=== PATIENT | male | born 1990 | race Caucasian/White ===

== ENCOUNTER 2024-07-18 13:45 | Outpatient (RCR) | payer OTHER, SELFPAY ==
--- NOTE | 2024-05-20 15:44 | PT.OIE ---
Current Diagnoses Pain in unspecified knee (05/20/24) Dorsalgia, unspecified (05/20/24) Weakness (05/20/24) Visit Care Team Role Provider Type Lou Prajapati DO Attending Provider Non-Staff Family Provider Primary Care Provider Referring Provider Specialty: Medical Address: [address] [place] [address], [phone] Fax: Email: Physical Therapy Initial Evaluation PT-OP-A Visit Information Start: 05/20/24 08:10 Freq: Status: Active Protocol: Document 05/20/24 08:13 SAK (Rec: 05/20/24 09:02 SAK [id number]) Out-Patient Physical Therapy Visit Information Visit Information Visit Type Initial Evaluation Visit Start Time 08:15 Visit Stop Time 09:01 Visit Number 1 Evaluation Information Evaluation Date 05/20/24 PT-OP-B Current Condition Start: 05/20/24 08:10 Freq: Status: Active Protocol: Document 05/20/24 08:13 SAK (Rec: 05/20/24 09:02 SAK [id number]) Current Condition History of Current Condition Onset Date 2 years Current Complaints bilateral LBP right greater than left, right knee pain History of Current Condition 2 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 Knee pain/ stiffness started about the same time especially after physical activity. Running less now due to that pain/ stiffness but definitely feels it more after running. Wakes up stiff in low back. Less lifting at work but has 25 lb 1 1/2 year old who likes to be carried a lot. No numbness or tingling, no drop foot. For exrcise does rowing, weight lifting, pickle ball, tennisl. No popping, clicking, or giving way of knee. Uses foam roller, does thread the needle stretch. Does some leg stretching of legs as well. Had PT in [place] previously and found dry needling helpful about 1 year ago. Prior Treatments and Tests no recent x-ray or MRI. Treatment Goals Patient/Caregiver Goals decrease pain and patric able to resume usual activities. Prior Functional Status Baseline Function- ADL's Independent Baseline Function- Mobility Independent Baseline Function- Gait no limitations Baseline Function- Recreation/Hobbies running without difficulty Current Functional Impairments (Reported) Functional Limitations- ADL's some pain and stiffness Functional Limitations- Mobility/Gait inc pain and stiffness Functional Limitations- Work/School some inc pain and stiffness, current plane better ergonomics Functional Limitations- Recreation/ inc pain and stiffness Hobbies PT-OP-C Subjective Start: 05/20/24 08:10 Freq: Status: Active Protocol: Document 05/20/24 08:13 SAK (Rec: 05/20/24 15:32 [facility] [id number]) OP-PT Pain Assessment Pain Behaviors Pain Behaviors Facial Grimacing,Wincing PT-OP-G Mobility & Gait Start: 05/20/24 08:10 Freq: Status: Active Protocol: Document 05/20/24 08:13 SAK (Rec: 05/20/24 15:32 [facility] [id number]) OP Gait Assessment Gait Gait Assistance Required: Independent Assistive Devices Assistive Device None Comments Gait Comments increased evrsion right foot, lateral patellar tilt PT-OP-H Neuro Start: 05/20/24 08:10 Freq: Status: Active Protocol: Document 05/20/24 08:13 SAK (Rec: 05/20/24 15:32 [facility] [id number]) Sensation Evaluation Gross Sensation Gross Sensation WNL PT-OP-J Posture/Palpation/Skin Start: 05/20/24 08:10 Freq: Status: Active Protocol: Document 05/20/24 08:13 SAK (Rec: 05/20/24 09:02 [facility] [id number]) Posture Evaluation Position Sitting Head/C-Spine Posture Forward Head T-Spine Posture Increased Kyphosis L-Spine Posture Shifted Right Shoulder Posture (L) Forward,(R) Forward Hip Posture (L) Abducted,(R) Abducted Patellar Posture (R) Laterally Tilted Standing Head/C-Spine Posture Forward Head T-Spine Posture Increased Kyphosis L-Spine Posture Flattened Arm Posture (L) Internally Rotated,(R) Internally Rotated Foot Arch (R) Low Arch Palpation Assessment Location lumbar spine Palpation Findings Soft Tissue Tightness Palpation Details right greater than left PT-OP-K Range of Motion Start: 05/20/24 08:10 Freq: Status: Active Protocol: Document 05/20/24 08:13 SAK (Rec: 05/20/24 09:02 [facility] [id number]) Lumbar Spine Range of Motion Lumbar Spine Active Testing Position Standing Flexion 70 Extension 20 Rotation Left 40 Rotation Right 40 Lateral Flexion Left 45 Lateral Flexion Right 45 ROM Limitations Soft Tissue Tightness Comments end range tightness Hip Goniometric Range of Motion Hip maribel Comments WFL exept right PSLR 80, left 65 Hip ROM Limitations Hip ROM Limitations Soft Tissue Tightness Knee Goniometric Range of Motion Knee maribel Knee ROM WFL Yes Ankle and Foot Goniometric Range of Motion Ankle and Foot maribel Ankle/Foot ROM WFL Yes PT-OP-L Special Tests Start: 05/20/24 08:10 Freq: Status: Active Protocol: Document 05/20/24 08:13 [facility] (Rec: 05/20/24 15:32 [facility] [id number]) Special Tests Lumbar Spine Special Tests Prone Knee Flexion Test Results - Slump Test Results - Prone Press Up Test Results - Knee Special Tests Varus- 0 Degrees Test Results - Valgus- 0 Degrees Test Results - Posterior Draw Test Results - Patellar Grind Test Test Results - Anterior Draw Test Results - Alexandro's Test Test Results - PT-OP-M Strength Start: 05/20/24 08:10 Freq: Status: Active Protocol: Document 05/20/24 08:13 [facility] (Rec: 05/20/24 15:32 [facility] [id number]) Trunk Strength Trunk Manual Muscle Testing Flexion 4 Good Extension 4 Good Hip Strength Hip Manual Muscle Testing maribel Flexion (L2) 4 Good Extension (S1) 4 Good Knee Strength Knee Manual Muscle Testing maribel Flexion (S2) 5 Normal Extension (L3) 5 Normal Ankle/Foot Strength Ankle and Foot Manual Muscle Testing Right Dorsiflexion (L4) 4+ Good+ Plantarflexion (S1) 4 Good Left Dorsiflexion (L4) 5 Normal Plantarflexion (S1) 5 Normal PT-OP-Q Treatments Start: 05/20/24 08:10 Freq: Status: Active Protocol: Document 05/20/24 08:13 [facility] (Rec: 05/20/24 15:32 [facility] [id number]) Self-Care/Home Management Treatment Education Patient Education Home Exercise Program,Posture Other Education issued written HEP PT-OP-T Assessment and Plan Start: 05/20/24 08:10 Freq: Status: Active Protocol: Document 05/20/24 08:13 [facility] (Rec: 05/20/24 15:32 [facility] [id number]) Physical Therapy Assessment Rehab Potential Rehabilitation Potential Good Evaluation Complexity Number of Personal Factors/Comorbidities 1-2 Number of Body Systems Impaired 3 Clinical Presentation at Evaluation Evolving Impairments Impairments Activity Tolerance,Pain,ROM, Strength Goals Four Impairment impairments in ROM and strength Short Term Goal (STG) Patient to be instrsucted in individualized progressive HEP for purposes of strengthening LE's and core, and improving flexibility STG Duration 06/20/24 Longterm Goal (LTG) Patient to be independent and compliant with HEP and demonstrate ROM WNL and strength 5/5 with good core stabilization with usual activities LTG Duration 07/20/24 Three Impairment altered patellar mechanics Court Commissioner Goal (LTG) Normalize patellar mechanics in open and closed chains for improved right knee function LTG Duration 07/20/24 Two Impairment right knee and low back pain and stiffness with lifting and running Short Term Goal (STG) Patient will report at least a 50% reduction in pain and stiffness with lifting and running STG Duration 06/20/24 [address] Commissioner Goal (LTG) Patient will report at least a 75% reduction in pain and stiffness with lifting and running including the ability to lift his toddler and go for runs without pain LTG Duration 07/20/24 One Impairment pain as high as 4/10 low back and right knee Court Commissioner Goal (LTG) Decrease pain by at least 75% with all usual activities. Assessment Summary Assessment Patient presents to PT with 2 year history of function- limiting LBP right greater than left and right knee pain . Gradual onset for both with no known injury. No neurological symptoms, no clicking or giving way of knee . 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 At this time he has strength and ROM impairments as well as excess lateral tilt and glide of right patella. Decreased hamstring length left vs right , decreased core stabilization , increased pronation right foot vs left, and increased eversion of of his right foot vs left in standing and with gait. He also has a postural tendency to lean to his right in sittingFeel he would benefit from PT to help improve his strength, flexibility, mechanics, and knee function to allow him to return to prior level of function. He appears highly motivated. POC was discussed and he was in agreement. Physical Therapy Plan Frequency and Duration Frequency of Treatment 2x/Week Duration of treatment (weeks) 8 Plan of Care Start Date 05/20/24 Plan of Care End Date 07/20/24 Therapeutic Interventions Therapeutic Interventions Home Exercise Program,Manual Therapy,Neuromuscular Re- education,Patient/Caregiver Education,Self-Care/Home Management,Soft Tissue Mobilization,Taping, Therapeutic Activities, Therapeutic Exercises Modalities Cold Pack/Ice Massage,Electric Stimulation,Hot Packs, Infrared Therapy,Traction- Mechanical,Ultrasound Next Visit Focus/Plan Next Note Type Treatment Note Next Visit Plan REview HEP, progress as tolerated for core strengthening and stabilization, flexibility, LE strengthening, trial KT tape to right knee. Check SLS and Ronni test.
--- NOTE | 2024-05-23 16:07 | PT.OTN ---
Current Diagnoses Pain in unspecified knee (05/23/24) Dorsalgia, unspecified (05/23/24) Weakness (05/23/24) Physical Therapy Treatment Note PT-OP-A Visit Information Start: 05/20/24 08:10 Freq: Status: Active Protocol: Document 05/23/24 15:50 SAK (Rec: 05/23/24 16:07 SAK [id number]) Out-Patient Physical Therapy Visit Information Visit Information Visit Type Treatment Note Visit Start Time 11:15 Visit Stop Time 12:02 Visit Number 2 Evaluation Information Evaluation Date 05/20/24 PT-OP-B Current Condition Start: 05/20/24 08:10 Freq: Status: Active Protocol: Document 05/23/24 15:50 SAK (Rec: 05/23/24 16:07 [facility] [id number]) Current Condition History of Current Condition Onset Date 2 years Current Complaints bilateral LBP right greater than left, right knee pain History of Current Condition 2 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 Knee pain/ stiffness started about the same time especially after physical activity. Running less now due to that pain/ stiffness but definitely feels it more after running. Wakes up stiff in low back. Less lifting at work but has 25 lb 1 1/2 year old who likes to be carried a lot. No numbness or tingling, no drop foot. For exrcise does rowing, weight lifting, pickle ball, tennisl. No popping, clicking, or giving way of knee. Uses foam roller, does thread the needle stretch. Does some leg stretching of legs as well. Had PT in [place] previously and found dry needling helpful about 1 year ago. Prior Treatments and Tests no recent x-ray or MRI. Treatment Goals Patient/Caregiver Goals decrease pain and patric able to resume usual activities. PT-OP-C Subjective Start: 05/20/24 08:10 Freq: Status: Active Protocol: Document 05/23/24 15:50 SAK (Rec: 05/23/24 16:07 SAK [id number]) OP-PT Subjective Patient Comments Patient Comments Patient reports no adverse effects from eval. No problem with HEP issued. OP-PT Pain Assessment Location right knee Intensity 5 Lower Back Intensity 5 PT-OP-G Mobility & Gait Start: 05/20/24 08:10 Freq: Status: Active Protocol: Document 05/20/24 08:13 SAK (Rec: 05/20/24 15:32 [facility] [id number]) OP Gait Assessment Gait Gait Assistance Required: Independent Assistive Devices Assistive Device None Comments Gait Comments increased evrsion right foot, lateral patellar tilt PT-OP-H Neuro Start: 05/20/24 08:10 Freq: Status: Active Protocol: Document 05/20/24 08:13 SAK (Rec: 05/20/24 15:32 [facility] [id number]) Sensation Evaluation Gross Sensation Gross Sensation WNL PT-OP-J Posture/Palpation/Skin Start: 05/20/24 08:10 Freq: Status: Active Protocol: Document 05/20/24 08:13 SAK (Rec: 05/20/24 09:02 [facility] [id number]) Posture Evaluation Position Sitting Head/C-Spine Posture Forward Head T-Spine Posture Increased Kyphosis L-Spine Posture Shifted Right Shoulder Posture (L) Forward,(R) Forward Hip Posture (L) Abducted,(R) Abducted Patellar Posture (R) Laterally Tilted Standing Head/C-Spine Posture Forward Head T-Spine Posture Increased Kyphosis L-Spine Posture Flattened Arm Posture (L) Internally Rotated,(R) Internally Rotated Foot Arch (R) Low Arch Palpation Assessment Location lumbar spine Palpation Findings Soft Tissue Tightness Palpation Details right greater than left PT-OP-K Range of Motion Start: 05/20/24 08:10 Freq: Status: Active Protocol: Document 05/20/24 08:13 SAK (Rec: 05/20/24 09:02 [facility] [id number]) Lumbar Spine Range of Motion Lumbar Spine Active Testing Position Standing Flexion 70 Extension 20 Rotation Left 40 Rotation Right 40 Lateral Flexion Left 45 Lateral Flexion Right 45 ROM Limitations Soft Tissue Tightness Comments end range tightness Hip Goniometric Range of Motion Hip maribel Comments WFL exept right PSLR 80, left 65 Hip ROM Limitations Hip ROM Limitations Soft Tissue Tightness Knee Goniometric Range of Motion Knee maribel Knee ROM WFL Yes Ankle and Foot Goniometric Range of Motion Ankle and Foot maribel Ankle/Foot ROM WFL Yes PT-OP-L Special Tests Start: 05/20/24 08:10 Freq: Status: Active Protocol: Document 05/20/24 08:13 SAK (Rec: 05/20/24 15:32 [facility] [id number]) Special Tests Lumbar Spine Special Tests Prone Knee Flexion Test Results - Slump Test Results - Prone Press Up Test Results - Knee Special Tests Varus- 0 Degrees Test Results - Valgus- 0 Degrees Test Results - Posterior Draw Test Results - Patellar Grind Test Test Results - Anterior Draw Test Results - Alexandro's Test Test Results - PT-OP-M Strength Start: 05/20/24 08:10 Freq: Status: Active Protocol: Document 05/20/24 08:13 [facility] (Rec: 05/20/24 15:32 [facility] [id number]) Trunk Strength Trunk Manual Muscle Testing Flexion 4 Good Extension 4 Good Hip Strength Hip Manual Muscle Testing maribel Flexion (L2) 4 Good Extension (S1) 4 Good Knee Strength Knee Manual Muscle Testing maribel Flexion (S2) 5 Normal Extension (L3) 5 Normal Ankle/Foot Strength Ankle and Foot Manual Muscle Testing Right Dorsiflexion (L4) 4+ Good+ Plantarflexion (S1) 4 Good Left Dorsiflexion (L4) 5 Normal Plantarflexion (S1) 5 Normal PT-OP-Q Treatments Start: 05/20/24 08:10 Freq: Status: Active Protocol: Document 05/23/24 15:50 [facility] (Rec: 05/23/24 16:07 [facility] [id number]) Cardio Equipment Treadmill Duration (Minutes) 5 Speed 3 Incline 0 Other Cardio Equipment Other Cardio Equipment Treadmill with jog; evaluate form with notable excess lumbar lordosis. Cues for neutral pelvis Therapeutic Exercises Supine Exercises supine leg lowering Supine Exercise Name straightening of lowered leg Reps/Minutes 10x Comments cues for core activation, no arching of spine pelvic tilt Reps/Minutes 5x Prone Exercises open book Reps/Minutes 3x ea side Comments cues for segmental movement plank Reps/Minutes 2x30 Comments cues for alignment Sidelying Exercises open book Reps/Minutes 3x Comments cues for segmental side plank Reps/Minutes 1x30 Comments cues for alignment Standing Exercises HS stretch Reps/Minutes 2x30 Comments stair wall posture Reps/Minutes 3x5 HC stretch Equipment Used ASHLEY Reps/Minutes 2x30 Comments feet straight and inv squats Equipment Used mirror Reps/Minutes 10x Comments cues for knees toward 2nd toe, symmetry Other Exercises child's pose Reps/Minutes 2x30 Comments cues for deep breathing bird dog Equipment Used yardstick on lower lumbar to cue neutral alinment Reps/Minutes 10x Manual Therapy Treatment Taping right knee Treatment Focus correct patellar glide Type of Tape KT Skin Inspection intact Comments Y strip base medial knee with 1 strip sup patella, 1 strip inf patella 50% stretch Self-Care/Home Management Treatment Education Patient Education Home Exercise Program,Posture Other Education issued updated written HEP PT-OP-T Assessment and Plan Start: 05/20/24 08:10 Freq: Status: Active Protocol: Document 05/23/24 15:50 [facility] (Rec: 05/23/24 16:07 [facility] [id number]) Physical Therapy Assessment Impairments Impairments Activity Tolerance,Pain,ROM, Strength Goals Four Impairment impairments in ROM and strength Short Term Goal (STG) Patient to be instrsucted in individualized progressive HEP for purposes of strengthening LE's and core, and improving flexibility STG Duration 06/20/24 Seo Intern Goal (LTG) Patient to be independent and compliant with HEP and demonstrate ROM WNL and strength 02/17 with good core stabilization with usual activities LTG Duration 07/20/24 Three Impairment altered patellar mechanics Seo Intern Goal (LTG) Normalize patellar mechanics in open and closed chains for improved right knee function LTG Duration 07/20/24 Two Impairment right knee and low back pain and stiffness with lifting and running Short Term Goal (STG) Patient will report at least a 50% reduction in pain and stiffness with lifting and running STG Duration 06/20/24 Longterm Goal (LTG) Patient will report at least a 75% reduction in pain and stiffness with lifting and running including the ability to lift his toddler and go for runs without pain LTG Duration 07/20/24 One Impairment pain as high as 4/10 low back and right knee Seo Intern Goal (LTG) Decrease pain by at least 75% with all usual activities. LTG Duration 07/20/24 Assessment Summary Assessment Notable excess lumbar lordosis with patient demo squat and with jog on treadmill, cues for neutral pelvis. Progressed core stabilization with emphasis on neutral pelvis as well and updated HEP . Trial KT tape for patellar alignment. Physical Therapy Plan Frequency and Duration Frequency of Treatment 2x/Week Duration of treatment (weeks) 8 Plan of Care Start Date 05/20/24 Plan of Care End Date 07/20/24 Therapeutic Interventions Therapeutic Interventions Home Exercise Program,Manual Therapy,Neuromuscular Re- education,Patient/Caregiver Education,Self-Care/Home Management,Soft Tissue Mobilization,Taping, Therapeutic Activities, Therapeutic Exercises Modalities Cold Pack/Ice Massage,Electric Stimulation,Hot Packs, Infrared Therapy,Traction- Mechanical,Ultrasound Next Visit Focus/Plan Next Note Type Treatment Note Next Visit Plan Check SLS and Ronni test. Evaluate response to KT tape, updated HEP. Add shuttle recovery maribel and unil, and hamstring curl. Consider STM IT band. Continue postural correction with functional movements
--- NOTE | 2024-05-28 09:04 | PT.OTN ---
Current Diagnoses Pain in unspecified knee (05/28/24) Dorsalgia, unspecified (05/28/24) Weakness (05/28/24) Physical Therapy Treatment Note PT-OP-A Visit Information Start: 05/20/24 08:10 Freq: Status: Active Protocol: Document 05/28/24 08:16 SP (Rec: 05/28/24 09:07 SP [id number]) Out-Patient Physical Therapy Visit Information Visit Information Visit Type Treatment Note Visit Start Time 08:16 Visit Stop Time 09:04 Visit Number 3 Number of CRISIS SPECIALIST Visits 1 Evaluation Information Evaluation Date 05/20/24 PT-OP-B Current Condition Start: 05/20/24 08:10 Freq: Status: Active Protocol: Document 05/23/24 15:50 SAK (Rec: 05/23/24 16:07 SAK [id number]) Current Condition History of Current Condition Onset Date 2 years Current Complaints bilateral LBP right greater than left, right knee pain History of Current Condition 2 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 Knee pain/ stiffness started about the same time especially after physical activity. Running less now due to that pain/ stiffness but definitely feels it more after running. Wakes up stiff in low back. Less lifting at work but has 25 lb 1 1/2 year old who likes to be carried a lot. No numbness or tingling, no drop foot. For exrcise does rowing, weight lifting, pickle ball, tennisl. No popping, clicking, or giving way of knee. Uses foam roller, does thread the needle stretch. Does some leg stretching of legs as well. Had PT in [place] previously and found dry needling helpful about 1 year ago. Prior Treatments and Tests no recent x-ray or MRI. Treatment Goals Patient/Caregiver Goals decrease pain and patric able to resume usual activities. PT-OP-C Subjective Start: 05/20/24 08:10 Freq: Status: Active Protocol: Document 05/28/24 08:16 SP (Rec: 05/28/24 09:07 SP [id number]) OP-PT Subjective Patient Comments Patient Comments Pt reports compliant with HEP, no adverse affects. 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 He states is jogging some and at times little medial R>L knee tightness. Has started rowing machine, little tightness R QL area and medial R knee. Tries to warm up stretch before cardio for flexibility. Notices stiffness / tightness post exercise. Doesn't notice much of a change /c Ktaping R patella medial glide. PT-OP-G Mobility & Gait Start: 05/20/24 08:10 Freq: Status: Active Protocol: Document 05/20/24 08:13 [facility] (Rec: 05/20/24 15:32 [facility] [id number]) OP Gait Assessment Gait Gait Assistance Required: Independent Assistive Devices Assistive Device None Comments Gait Comments increased evrsion right foot, lateral patellar tilt PT-OP-H Neuro Start: 05/20/24 08:10 Freq: Status: Active Protocol: Document 05/20/24 08:13 SAK (Rec: 05/20/24 15:32 [facility] [id number]) Sensation Evaluation Gross Sensation Gross Sensation WNL PT-OP-J Posture/Palpation/Skin Start: 05/20/24 08:10 Freq: Status: Active Protocol: Document 05/20/24 08:13 SAK (Rec: 05/20/24 09:02 [facility] [id number]) Posture Evaluation Position Sitting Head/C-Spine Posture Forward Head T-Spine Posture Increased Kyphosis L-Spine Posture Shifted Right Shoulder Posture (L) Forward,(R) Forward Hip Posture (L) Abducted,(R) Abducted Patellar Posture (R) Laterally Tilted Standing Head/C-Spine Posture Forward Head T-Spine Posture Increased Kyphosis L-Spine Posture Flattened Arm Posture (L) Internally Rotated,(R) Internally Rotated Foot Arch (R) Low Arch Palpation Assessment Location lumbar spine Palpation Findings Soft Tissue Tightness Palpation Details right greater than left PT-OP-K Range of Motion Start: 05/20/24 08:10 Freq: Status: Active Protocol: Document 05/20/24 08:13 SAK (Rec: 05/20/24 09:02 [facility] [id number]) Lumbar Spine Range of Motion Lumbar Spine Active Testing Position Standing Flexion 70 Extension 20 Rotation Left 40 Rotation Right 40 Lateral Flexion Left 45 Lateral Flexion Right 45 ROM Limitations Soft Tissue Tightness Comments end range tightness Hip Goniometric Range of Motion Hip maribel Comments WFL exept right PSLR 80, left 65 Hip ROM Limitations Hip ROM Limitations Soft Tissue Tightness Knee Goniometric Range of Motion Knee maribel Knee ROM WFL Yes Ankle and Foot Goniometric Range of Motion Ankle and Foot maribel Ankle/Foot ROM WFL Yes PT-OP-L Special Tests Start: 05/20/24 08:10 Freq: Status: Active Protocol: Document 05/20/24 08:13 SAK (Rec: 05/20/24 15:32 SAK [id number]) Special Tests Lumbar Spine Special Tests Prone Knee Flexion Test Results - Slump Test Results - Prone Press Up Test Results - Knee Special Tests Varus- 0 Degrees Test Results - Valgus- 0 Degrees Test Results - Posterior Draw Test Results - Patellar Grind Test Test Results - Anterior Draw Test Results - Alexandro's Test Test Results - PT-OP-M Strength Start: 05/20/24 08:10 Freq: Status: Active Protocol: Document 05/20/24 08:13 SAK (Rec: 05/20/24 15:32 SAK [id number]) Trunk Strength Trunk Manual Muscle Testing Flexion 4 Good Extension 4 Good Hip Strength Hip Manual Muscle Testing maribel Flexion (L2) 4 Good Extension (S1) 4 Good Knee Strength Knee Manual Muscle Testing maribel Flexion (S2) 5 Normal Extension (L3) 5 Normal Ankle/Foot Strength Ankle and Foot Manual Muscle Testing Right Dorsiflexion (L4) 4+ Good+ Plantarflexion (S1) 4 Good Left Dorsiflexion (L4) 5 Normal Plantarflexion (S1) 5 Normal PT-OP-Q Treatments Start: 05/20/24 08:10 Freq: Status: Active Protocol: Document 05/28/24 08:16 SP (Rec: 05/28/24 09:07 SP [id number]) Cardio Equipment Treadmill Duration (Minutes) 6 Speed 6 Incline 0 Other warm up Therapeutic Exercises Sidelying Exercises open book Side bilateral Reps/Minutes 5 Comments cues for segmental Standing Exercises Med fusion Daily Dozen Standing Exercise Name 1, 2, 8, 10, 11 (see HO scanned in)- Yoga activities Side bilateral Reps/Minutes 5 reps each Comments good feedback stretch/ ROM with core engagement for trunk / LE stability HS stretch Standing Exercise Name HS and adductor Side bilateral Equipment Used 1. bottoms up 2. fwd 3. lateral adductor Reps/Minutes x30 Comments hands on chair/bench Other Exercises child's pose Reps/Minutes 60 Comments cues for deep breathing bird dog Other Exercise Name UE/LE ext Side bilateral Equipment Used improved maintain neutral spine CS&LS post cues Reps/Minutes 10x Comments cued PPT neutral LS and CS flex/retraction neutral, reach LE not high- impr Manual Therapy Treatment Consent Patient gave verbal consent for manual Yes treatment Taping right knee Treatment Focus correct patellar medial glide Type of Tape KT Skin Inspection intact Comments C strip base medial knee: 1 strip sup patella, 1 strip inf patella 50% stretch Self-Care/Home Management Treatment Education Other Education use rolling stick and or foam roller Continue planks, active HEP for strengthening carryover PT-OP-T Assessment and Plan Start: 05/20/24 08:10 Freq: Status: Active Protocol: Document 05/28/24 08:16 SP (Rec: 05/28/24 09:07 SP [id number]) Physical Therapy Assessment Goals Four Impairment impairments in ROM and strength Short Term Goal (STG) Patient to be instrsucted in individualized progressive HEP for purposes of strengthening LE's and core, and improving flexibility STG Duration 06/20/24 Tugger Operator Goal (LTG) Patient to be independent and compliant with HEP and demonstrate ROM WNL and strength / with good core stabilization with usual activities LTG Duration 07/20/24 Three Impairment altered patellar mechanics Half-Way Goal (LTG) Normalize patellar mechanics in open and closed chains for improved right knee function LTG Duration 07/20/24 Two Impairment right knee and low back pain and stiffness with lifting and running Short Term Goal (STG) Patient will report at least a 50% reduction in pain and stiffness with lifting and running STG Duration 06/20/24 Half-Way Goal (LTG) Patient will report at least a 75% reduction in pain and stiffness with lifting and running including the ability to lift his toddler and go for runs without pain LTG Duration 07/20/24 One Impairment pain as high as 4/10 low back and right knee Tugger Operator Goal (LTG) Decrease pain by at least 75% with all usual activities. LTG Duration 07/20/24 Assessment Summary Assessment Pt cues for TA& PPT with occasional corrections for neutral pelvis during jog TM and bird dog today, improvement in demonstration. Initiated standing yoga avaitor's daily dozen for assist carryover at work for back and LE flexibility with core stability facilitation. Retaped B knees with medial glide intension support, decreased 50% tension with no discomfort on skin/hair pulling. Good response to stretching review. He reports utilizes rolling pin and foam roller on his own for muscle tension reduction, future appt check for performance and spinal/abdominal engagement support. Pt will be out of town almost 30 days coming up end May, aware needs to make more appts with follow up return with PT, will need PN/ updated POC completed pre 07/18. Physical Therapy Plan Frequency and Duration Frequency of Treatment 2x/Week Duration of treatment (weeks) 8 Plan of Care Start Date 05/20/24 Plan of Care End Date 07/20/24 Therapeutic Interventions Therapeutic Interventions Home Exercise Program,Manual Therapy,Neuromuscular Re- education,Patient/Caregiver Education,Self-Care/Home Management,Soft Tissue Mobilization,Taping, Therapeutic Activities, Therapeutic Exercises Modalities Cold Pack/Ice Massage,Electric Stimulation,Hot Packs, Infrared Therapy,Traction- Mechanical,Ultrasound Next Visit Focus/Plan Next Note Type Treatment Note Next Visit Plan Update POC when return OOT gone Sept. Next tx: check response Aviator Daily Dozen. Check SLS and Ronni test. Evaluate response to KT tape, updated HEP. Add shuttle recovery maribel and unil, and hamstring curl. Consider STM IT band. Continue postural correction with functional movements
--- NOTE | 2024-05-28 09:04 | PT.OTN ---
Current Diagnoses Pain in unspecified knee (05/28/24) Dorsalgia, unspecified (05/28/24) Weakness (05/28/24) Physical Therapy Treatment Note PT-OP-A Visit Information Start: 05/20/24 08:10 Freq: Status: Active Protocol: Document 05/28/24 08:16 SP (Rec: 05/28/24 09:07 SP [id number]) Out-Patient Physical Therapy Visit Information Visit Information Visit Type Treatment Note Visit Start Time 08:16 Visit Stop Time 09:04 Visit Number 3 Number of TREE WRAPPER Visits 1 Evaluation Information Evaluation Date 05/20/24 PT-OP-B Current Condition Start: 05/20/24 08:10 Freq: Status: Active Protocol: Document 05/23/24 15:50 SAK (Rec: 05/23/24 16:07 SAK [id number]) Current Condition History of Current Condition Onset Date 2 years Current Complaints bilateral LBP right greater than left, right knee pain History of Current Condition 2 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 Knee pain/ stiffness started about the same time especially after physical activity. Running less now due to that pain/ stiffness but definitely feels it more after running. Wakes up stiff in low back. Less lifting at work but has 25 lb 1 1/2 year old who likes to be carried a lot. No numbness or tingling, no drop foot. For exrcise does rowing, weight lifting, pickle ball, tennisl. No popping, clicking, or giving way of knee. Uses foam roller, does thread the needle stretch. Does some leg stretching of legs as well. Had PT in [place] previously and found dry needling helpful about 1 year ago. Prior Treatments and Tests no recent x-ray or MRI. Treatment Goals Patient/Caregiver Goals decrease pain and aptric able to resume usual activities. PT-OP-C Subjective Start: 05/20/24 08:10 Freq: Status: Active Protocol: Document 05/28/24 08:16 SP (Rec: 05/28/24 09:07 SP [id number]) OP-PT Subjective Patient Comments Patient Comments Pt reports compliant with HEP, no adverse affects. 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 He states is jogging some and at times little medial R>L knee tightness. Has started rowing machine, little tightness R QL area and medial R knee. Tries to warm up stretch before cardio for flexibility. Notices stiffness / tightness post exercise. Doesn't notice much of a change /c Ktaping R patella medial glide. PT-OP-G Mobility & Gait Start: 05/20/24 08:10 Freq: Status: Active Protocol: Document 05/20/24 08:13 [facility] (Rec: 05/20/24 15:32 [facility] [id number]) OP Gait Assessment Gait Gait Assistance Required: Independent Assistive Devices Assistive Device None Comments Gait Comments increased evrsion right foot, lateral patellar tilt PT-OP-H Neuro Start: 05/20/24 08:10 Freq: Status: Active Protocol: Document 05/20/24 08:13 SAK (Rec: 05/20/24 15:32 [facility] [id number]) Sensation Evaluation Gross Sensation Gross Sensation WNL PT-OP-J Posture/Palpation/Skin Start: 05/20/24 08:10 Freq: Status: Active Protocol: Document 05/20/24 08:13 SAK (Rec: 05/20/24 09:02 [facility] [id number]) Posture Evaluation Position Sitting Head/C-Spine Posture Forward Head T-Spine Posture Increased Kyphosis L-Spine Posture Shifted Right Shoulder Posture (L) Forward,(R) Forward Hip Posture (L) Abducted,(R) Abducted Patellar Posture (R) Laterally Tilted Standing Head/C-Spine Posture Forward Head T-Spine Posture Increased Kyphosis L-Spine Posture Flattened Arm Posture (L) Internally Rotated,(R) Internally Rotated Foot Arch (R) Low Arch Palpation Assessment Location lumbar spine Palpation Findings Soft Tissue Tightness Palpation Details right greater than left PT-OP-K Range of Motion Start: 05/20/24 08:10 Freq: Status: Active Protocol: Document 05/20/24 08:13 SAK (Rec: 05/20/24 09:02 [facility] [id number]) Lumbar Spine Range of Motion Lumbar Spine Active Testing Position Standing Flexion 70 Extension 20 Rotation Left 40 Rotation Right 40 Lateral Flexion Left 45 Lateral Flexion Right 45 ROM Limitations Soft Tissue Tightness Comments end range tightness Hip Goniometric Range of Motion Hip maribel Comments WFL exept right PSLR 80, left 65 Hip ROM Limitations Hip ROM Limitations Soft Tissue Tightness Knee Goniometric Range of Motion Knee marbiel Knee ROM WFL Yes Ankle and Foot Goniometric Range of Motion Ankle and Foot maribel Ankle/Foot ROM WFL Yes PT-OP-L Special Tests Start: 05/20/24 08:10 Freq: Status: Active Protocol: Document 05/20/24 08:13 SAK (Rec: 05/20/24 15:32 SAK [id number]) Special Tests Lumbar Spine Special Tests Prone Knee Flexion Test Results - Slump Test Results - Prone Press Up Test Results - Knee Special Tests Varus- 0 Degrees Test Results - Valgus- 0 Degrees Test Results - Posterior Draw Test Results - Patellar Grind Test Test Results - Anterior Draw Test Results - Alexandro's Test Test Results - PT-OP-M Strength Start: 05/20/24 08:10 Freq: Status: Active Protocol: Document 05/20/24 08:13 SAK (Rec: 05/20/24 15:32 SAK [id number]) Trunk Strength Trunk Manual Muscle Testing Flexion 4 Good Extension 4 Good Hip Strength Hip Manual Muscle Testing maribel Flexion (L2) 4 Good Extension (S1) 4 Good Knee Strength Knee Manual Muscle Testing maribel Flexion (S2) 5 Normal Extension (L3) 5 Normal Ankle/Foot Strength Ankle and Foot Manual Muscle Testing Right Dorsiflexion (L4) 4+ Good+ Plantarflexion (S1) 4 Good Left Dorsiflexion (L4) 5 Normal Plantarflexion (S1) 5 Normal PT-OP-Q Treatments Start: 05/20/24 08:10 Freq: Status: Active Protocol: Document 05/28/24 08:16 SP (Rec: 05/28/24 09:07 SP [id number]) Cardio Equipment Treadmill Duration (Minutes) 6 Speed 6 Incline 0 Other warm up Therapeutic Exercises Sidelying Exercises open book Side bilateral Reps/Minutes 5 Comments cues for segmental Standing Exercises IPWireless Daily Dozen Standing Exercise Name 1, 2, 8, 10, 11 (see HO scanned in)- Yoga activities Side bilateral Reps/Minutes 5 reps each Comments good feedback stretch/ ROM with core engagement for trunk / LE stability HS stretch Standing Exercise Name HS and adductor Side bilateral Equipment Used 1. bottoms up 2. fwd 3. lateral adductor Reps/Minutes x30 Comments hands on chair/bench Other Exercises child's pose Reps/Minutes 60 Comments cues for deep breathing bird dog Other Exercise Name UE/LE ext Side bilateral Equipment Used improved maintain neutral spine CS&LS post cues Reps/Minutes 10x Comments cued PPT neutral LS and CS flex/retraction neutral, reach LE not high- impr Manual Therapy Treatment Consent Patient gave verbal consent for manual Yes treatment Taping right knee Treatment Focus correct patellar medial glide Type of Tape KT Skin Inspection intact Comments C strip base medial knee: 1 strip sup patella, 1 strip inf patella 50% stretch Self-Care/Home Management Treatment Education Other Education use rolling stick and or foam roller Continue planks, active HEP for strengthening carryover PT-OP-T Assessment and Plan Start: 05/20/24 08:10 Freq: Status: Active Protocol: Document 05/28/24 08:16 SP (Rec: 05/28/24 09:07 SP [id number]) Physical Therapy Assessment Goals Four Impairment impairments in ROM and strength Short Term Goal (STG) Patient to be instrsucted in individualized progressive HEP for purposes of strengthening LE's and core, and improving flexibility STG Duration 06/20/24 Reverse Engineer Goal (LTG) Patient to be independent and compliant with HEP and demonstrate ROM WNL and strength / with good core stabilization with usual activities LTG Duration 07/20/24 Three Impairment altered patellar mechanics Usp Goal (LTG) Normalize patellar mechanics in open and closed chains for improved right knee function LTG Duration 07/20/24 Two Impairment right knee and low back pain and stiffness with lifting and running Short Term Goal (STG) Patient will report at least a 50% reduction in pain and stiffness with lifting and running STG Duration 06/20/24 Usp Goal (LTG) Patient will report at least a 75% reduction in pain and stiffness with lifting and running including the ability to lift his toddler and go for runs without pain LTG Duration 07/20/24 One Impairment pain as high as 4/10 low back and right knee Reverse Engineer Goal (LTG) Decrease pain by at least 75% with all usual activities. LTG Duration 07/20/24 Assessment Summary Assessment Pt cues for TA& PPT with occasional corrections for neutral pelvis during jog TM and bird dog today, improvement in demonstration. Initiated standing yoga avaitor's daily dozen for assist carryover at work for back and LE flexibility with core stability facilitation. Retaped B knees with medial glide intension support, decreased 50% tension with no discomfort on skin/hair pulling. Good response to stretching review. He reports utilizes rolling pin and foam roller on his own for muscle tension reduction, future appt check for performance and spinal/abdominal engagement support. Pt will be out of town almost 30 days coming up end May, aware needs to make more appts with follow up return with PT, will need PN/ updated POC completed next PT appt 07/18, prior EXP 07/20. Physical Therapy Plan Frequency and Duration Frequency of Treatment 2x/Week Duration of treatment (weeks) 8 Plan of Care Start Date 05/20/24 Plan of Care End Date 07/20/24 Therapeutic Interventions Therapeutic Interventions Home Exercise Program,Manual Therapy,Neuromuscular Re- education,Patient/Caregiver Education,Self-Care/Home Management,Soft Tissue Mobilization,Taping, Therapeutic Activities, Therapeutic Exercises Modalities Cold Pack/Ice Massage,Electric Stimulation,Hot Packs, Infrared Therapy,Traction- Mechanical,Ultrasound Next Visit Focus/Plan Next Note Type Treatment Note Next Visit Plan Update POC when return OOT 07/18 gone Jun. Next tx: check response Aviator Daily Dozen. Check SLS and Ronni test. Evaluate response to KT tape, updated HEP. Add shuttle recovery maribel and unil, and hamstring curl. Consider STM IT band. Continue postural correction with functional movements
--- NOTE | 2024-05-31 09:45 | PT.OTN ---
Current Diagnoses Pain in unspecified knee (05/31/24) Dorsalgia, unspecified (05/31/24) Weakness (05/31/24) Physical Therapy Treatment Note PT-OP-A Visit Information Start: 05/20/24 08:10 Freq: Status: Active Protocol: Document 05/31/24 09:04 SP (Rec: 05/31/24 09:49 SP [id number]) Out-Patient Physical Therapy Visit Information Visit Information Visit Type Treatment Note Visit Start Time 09:05 Visit Stop Time 09:45 Visit Number 4 Number of DRAPERY CUTTER Visits 2 Evaluation Information Evaluation Date 05/20/24 PT-OP-B Current Condition Start: 05/20/24 08:10 Freq: Status: Active Protocol: Document 05/23/24 15:50 SAK (Rec: 05/23/24 16:07 SAK [id number]) Current Condition History of Current Condition Onset Date 2 years Current Complaints bilateral LBP right greater than left, right knee pain History of Current Condition 2 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 Knee pain/ stiffness started about the same time especially after physical activity. Running less now due to that pain/ stiffness but definitely feels it more after running. Wakes up stiff in low back. Less lifting at work but has 25 lb 1 1/2 year old who likes to be carried a lot. No numbness or tingling, no drop foot. For exrcise does rowing, weight lifting, pickle ball, tennisl. No popping, clicking, or giving way of knee. Uses foam roller, does thread the needle stretch. Does some leg stretching of legs as well. Had PT in [place] previously and found dry needling helpful about 1 year ago. Prior Treatments and Tests no recent x-ray or MRI. Treatment Goals Patient/Caregiver Goals decrease pain and patric able to resume usual activities. PT-OP-C Subjective Start: 05/20/24 08:10 Freq: Status: Active Protocol: Document 05/31/24 09:04 SP (Rec: 05/31/24 09:49 SP [id number]) OP-PT Subjective Patient Comments Patient Comments Pt reports not seeing the Ktaping Knees help much with LE tension reduction, not having pain knees. Is compliant with HEP plugging in to work day to support back comfort. Noticing back not as constant chronic tightness, less frequent. Hasn't performed running but doing well on rowing machine with no back pain. Is headed out of town >30 days soon and has follow up appt with PT when returns.. PT-OP-G Mobility & Gait Start: 05/20/24 08:10 Freq: Status: Active Protocol: Document 05/20/24 08:13 SAK (Rec: 05/20/24 15:32 [facility] [id number]) OP Gait Assessment Gait Gait Assistance Required: Independent Assistive Devices Assistive Device None Comments Gait Comments increased evrsion right foot, lateral patellar tilt PT-OP-H Neuro Start: 05/20/24 08:10 Freq: Status: Active Protocol: Document 05/20/24 08:13 SAK (Rec: 05/20/24 15:32 [facility] [id number]) Sensation Evaluation Gross Sensation Gross Sensation WNL PT-OP-J Posture/Palpation/Skin Start: 05/20/24 08:10 Freq: Status: Active Protocol: Document 05/20/24 08:13 [facility] (Rec: 05/20/24 09:02 [facility] [id number]) Posture Evaluation Position Sitting Head/C-Spine Posture Forward Head T-Spine Posture Increased Kyphosis L-Spine Posture Shifted Right Shoulder Posture (L) Forward,(R) Forward Hip Posture (L) Abducted,(R) Abducted Patellar Posture (R) Laterally Tilted Standing Head/C-Spine Posture Forward Head T-Spine Posture Increased Kyphosis L-Spine Posture Flattened Arm Posture (L) Internally Rotated,(R) Internally Rotated Foot Arch (R) Low Arch Palpation Assessment Location lumbar spine Palpation Findings Soft Tissue Tightness Palpation Details right greater than left PT-OP-K Range of Motion Start: 05/20/24 08:10 Freq: Status: Active Protocol: Document 05/20/24 08:13 SAK (Rec: 05/20/24 09:02 [facility] [id number]) Lumbar Spine Range of Motion Lumbar Spine Active Testing Position Standing Flexion 70 Extension 20 Rotation Left 40 Rotation Right 40 Lateral Flexion Left 45 Lateral Flexion Right 45 ROM Limitations Soft Tissue Tightness Comments end range tightness Hip Goniometric Range of Motion Hip maribel Comments WFL exept right PSLR 80, left 65 Hip ROM Limitations Hip ROM Limitations Soft Tissue Tightness Knee Goniometric Range of Motion Knee maribel Knee ROM WFL Yes Ankle and Foot Goniometric Range of Motion Ankle and Foot maribel Ankle/Foot ROM WFL Yes PT-OP-L Special Tests Start: 05/20/24 08:10 Freq: Status: Active Protocol: Document 05/20/24 08:13 SAK (Rec: 05/20/24 15:32 SAK [id number]) Special Tests Lumbar Spine Special Tests Prone Knee Flexion Test Results - Slump Test Results - Prone Press Up Test Results - Knee Special Tests Varus- 0 Degrees Test Results - Valgus- 0 Degrees Test Results - Posterior Draw Test Results - Patellar Grind Test Test Results - Anterior Draw Test Results - Laexandro's Test Test Results - PT-OP-M Strength Start: 05/20/24 08:10 Freq: Status: Active Protocol: Document 05/20/24 08:13 SAK (Rec: 05/20/24 15:32 SAK [id number]) Trunk Strength Trunk Manual Muscle Testing Flexion 4 Good Extension 4 Good Hip Strength Hip Manual Muscle Testing maribel Flexion (L2) 4 Good Extension (S1) 4 Good Knee Strength Knee Manual Muscle Testing maribel Flexion (S2) 5 Normal Extension (L3) 5 Normal Ankle/Foot Strength Ankle and Foot Manual Muscle Testing Right Dorsiflexion (L4) 4+ Good+ Plantarflexion (S1) 4 Good Left Dorsiflexion (L4) 5 Normal Plantarflexion (S1) 5 Normal PT-OP-Q Treatments Start: 05/20/24 08:10 Freq: Status: Active Protocol: Document 05/31/24 09:04 SP (Rec: 05/31/24 09:49 SP [id number]) Therapeutic Exercises Supine Exercises Ronni test Supine Exercise Name 05/31 Comments painfree, Psoas little more tight on L than R Prone Exercises plank Prone Exercise Name on feet elbows Reps/Minutes 3 min 10 sec then quit Comments good core and alignment to complete PRT with Excellent- pnfree Sidelying Exercises side plank Sidelying Exercise Name feet forearm Equipment Used R 1 min 17 sec Reps/Minutes L 1 min 30 sec Comments cued UE on hip, raised ceiling if needed- good alignment pnfree- moretiring Standing Exercises SL RDL Standing Exercise Name reviewed self HEP (usually uses 15# DB 1 UE) Resistance AROM> 10 # DB each UE Reps/Minutes 5 reps each Comments occ cues for level pelvis R stance L lower Other Exercises 1/2 kneel hip flexor stretch /c OH raise Other Exercise Name trialed Side bilateral Comments tighter on R, not feel much stretch on L Neuro Re-Education Treatment Balance Activities SLS Comments R 60sec L 60 sec PT-OP-T Assessment and Plan Start: 05/20/24 08:10 Freq: Status: Active Protocol: Document 05/31/24 09:04 SP (Rec: 05/31/24 09:49 SP [id number]) Physical Therapy Assessment Goals Four Impairment impairments in ROM and strength Short Term Goal (STG) Patient to be instrsucted in individualized progressive HEP for purposes of strengthening LE's and core, and improving flexibility STG Duration 06/20/24 Senior Care Goal (LTG) Patient to be independent and compliant with HEP and demonstrate ROM WNL and strength 02/17 with good core stabilization with usual activities LTG Duration 07/20/24 Three Impairment altered patellar mechanics Senior Care Goal (LTG) Normalize patellar mechanics in open and closed chains for improved right knee function 05/31/24: not notice change, still stiffness even with Ktaping so going to stop using . LTG Duration 07/20/24 slow progression Two Impairment right knee and low back pain and stiffness with lifting and running Short Term Goal (STG) Patient will report at least a 50% reduction in pain and stiffness with lifting and running STG Duration 06/20/24 Senior Care Goal (LTG) Patient will report at least a 75% reduction in pain and stiffness with lifting and running including the ability to lift his toddler and go for runs without pain LTG Duration 07/20/24 One Impairment pain as high as 4/10 low back and right knee Senior Care Goal (LTG) Decrease pain by at least 75% with all usual activities. 05/31/24: MET GOAL: day to day basis back and R>Lknee pain more tension than pain 2/10 and met 75% better. LTG Duration 07/20/24 MET GOAL 05/31/24 Assessment Summary Assessment Pt good tolerance painfree to core progression planks for alloted time will have to perform his yearly PRT for an excellent rating. Initiated RDL with cues for L hip lower and L shoulder elevated for level spinal and hip stability use mirror for self awareness corrections. No pain reported , has performed self at home/ gym 15 # DB vs 10# in PT. Noted little balance challenge but improved slower pacing movement and proper with cues. Good hip flexor ronni and 1/ 2 knee stretch, less tension in LB after. Pt reports compliant with HEP and trying to incorporated into work day for carryover mobility. Physical Therapy Plan Frequency and Duration Frequency of Treatment 2x/Week Duration of treatment (weeks) 8 Plan of Care Start Date 05/20/24 Plan of Care End Date 07/20/24 Therapeutic Interventions Therapeutic Interventions Home Exercise Program,Manual Therapy,Neuromuscular Re- education,Patient/Caregiver Education,Self-Care/Home Management,Soft Tissue Mobilization,Taping, Therapeutic Activities, Therapeutic Exercises Modalities Cold Pack/Ice Massage,Electric Stimulation,Hot Packs, Infrared Therapy,Traction- Mechanical,Ultrasound Next Visit Focus/Plan Next Note Type Treatment Note Next Visit Plan *PT Update 07/18 POC vs DC when return OOT gone Jun. Next review squats and progress response with SL RDL, recheck Aviator Daily Dozen posterior chain flexibility. Next assess his form foam rolling states has done in past. Per PT POC: Add shuttle recovery maribel and unil, and hamstring curl. Consider STM IT band. Continue postural correction with functional movements
--- NOTE | 2024-06-03 09:00 | PT.OTN ---
Current Diagnoses Pain in unspecified knee (06/03/24) Dorsalgia, unspecified (06/03/24) Weakness (06/03/24) Physical Therapy Treatment Note PT-OP-A Visit Information Start: 05/20/24 08:10 Freq: Status: Active Protocol: Document 06/03/24 08:18 SP (Rec: 06/03/24 09:03 SP [id number]) Out-Patient Physical Therapy Visit Information Visit Information Visit Type Treatment Note Visit Note Pt will be out of town for work til beginning of Jul. 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 Knee pain/ stiffness started about the same time especially after physical activity. Running less now due to that pain/ stiffness but definitely feels it more after running. Wakes up stiff in low back. Less lifting at work but has 25 lb 1 1/2 year old who likes to be carried a lot. No numbness or tingling, no drop foot. For exrcise does rowing, weight lifting, pickle ball, tennisl. No popping, clicking, or giving way of knee. Uses foam roller, does thread the needle stretch. Does some leg stretching of legs as well. Had PT in [place] previously and found dry needling helpful about 1 year ago. Prior Treatments and Tests no recent x-ray or MRI. Treatment Goals Patient/Caregiver Goals decrease pain and patric able to resume usual activities. PT-OP-C Subjective Start: 05/20/24 08:10 Freq: Status: Active Protocol: Document 06/03/24 08:18 SP (Rec: 06/03/24 09:03 SP [id number]) OP-PT Subjective Patient Comments Patient Comments Pt reports incorporating engaging core when last picker son 20 months old, no pain. He reports doing rowing machine and flexibiltiy stretches. Has not returned to running. He has his PRT coming up in couple weeks, plans to perform cardio on rowing machine. PT-OP-G Mobility & Gait Start: 05/20/24 08:10 Freq: Status: Active Protocol: Document 05/20/24 08:13 [facility] (Rec: 05/20/24 15:32 [facility] [id number]) OP Gait Assessment Gait Gait Assistance Required: Independent Assistive Devices Assistive Device None Comments Gait Comments increased evrsion right foot, lateral patellar tilt PT-OP-H Neuro Start: 05/20/24 08:10 Freq: Status: Active Protocol: Document 05/20/24 08:13 [facility] (Rec: 05/20/24 15:32 [facility] [id number]) Sensation Evaluation Gross Sensation Gross Sensation WNL PT-OP-J Posture/Palpation/Skin Start: 05/20/24 08:10 Freq: Status: Active Protocol: Document 05/20/24 08:13 [facility] (Rec: 05/20/24 09:02 [facility] [id number]) Posture Evaluation Position Sitting Head/C-Spine Posture Forward Head T-Spine Posture Increased Kyphosis L-Spine Posture Shifted Right Shoulder Posture (L) Forward,(R) Forward Hip Posture (L) Abducted,(R) Abducted Patellar Posture (R) Laterally Tilted Standing Head/C-Spine Posture Forward Head T-Spine Posture Increased Kyphosis L-Spine Posture Flattened Arm Posture (L) Internally Rotated,(R) Internally Rotated Foot Arch (R) Low Arch Palpation Assessment Location lumbar spine Palpation Findings Soft Tissue Tightness Palpation Details right greater than left PT-OP-K Range of Motion Start: 05/20/24 08:10 Freq: Status: Active Protocol: Document 05/20/24 08:13 [facility] (Rec: 05/20/24 09:02 [facility] [id number]) Lumbar Spine Range of Motion Lumbar Spine Active Testing Position Standing Flexion 70 Extension 20 Rotation Left 40 Rotation Right 40 Lateral Flexion Left 45 Lateral Flexion Right 45 ROM Limitations Soft Tissue Tightness Comments end range tightness Hip Goniometric Range of Motion Hip jamar Comments WFL exept right PSLR 80, left 65 Hip ROM Limitations Hip ROM Limitations Soft Tissue Tightness Knee Goniometric Range of Motion Knee jamar Knee ROM WFL Yes Ankle and Foot Goniometric Range of Motion Ankle and Foot jamar Ankle/Foot ROM WFL Yes PT-OP-L Special Tests Start: 05/20/24 08:10 Freq: Status: Active Protocol: Document 05/20/24 08:13 SAK (Rec: 05/20/24 15:32 SAK [id number]) Special Tests Lumbar Spine Special Tests Prone Knee Flexion Test Results - Slump Test Results - Prone Press Up Test Results - Knee Special Tests Varus- 0 Degrees Test Results - Valgus- 0 Degrees Test Results - Posterior Draw Test Results - Patellar Grind Test Test Results - Anterior Draw Test Results - Alexandro's Test Test Results - PT-OP-M Strength Start: 05/20/24 08:10 Freq: Status: Active Protocol: Document 05/20/24 08:13 SAK (Rec: 05/20/24 15:32 SAK [id number]) Trunk Strength Trunk Manual Muscle Testing Flexion 4 Good Extension 4 Good Hip Strength Hip Manual Muscle Testing jamar Flexion (L2) 4 Good Extension (S1) 4 Good Knee Strength Knee Manual Muscle Testing jamar Flexion (S2) 5 Normal Extension (L3) 5 Normal Ankle/Foot Strength Ankle and Foot Manual Muscle Testing Right Dorsiflexion (L4) 4+ Good+ Plantarflexion (S1) 4 Good Left Dorsiflexion (L4) 5 Normal Plantarflexion (S1) 5 Normal PT-OP-Q Treatments Start: 05/20/24 08:10 Freq: Status: Active Protocol: Document 06/03/24 08:18 SP (Rec: 06/03/24 09:03 SP [id number]) Cardio Equipment Treadmill Duration (Minutes) 6 Speed 6 Incline 0 Other warm up- painfree Therapeutic Exercises Supine Exercises bug Supine Exercise Name trialed in PT Side bilateral Resistance AROM Reps/Minutes x10 Comments good form, pnfree- not challenging Prone Exercises plank Prone Exercise Name on feet & elbows Reps/Minutes 3 min 10 sec before stopped tiring Comments good core and alignment to complete PRT with Excellent rating- pnfree Sidelying Exercises plank<> side plank Sidelying Exercise Name trialed for strength/ stability- not for HEP Side bilateral Resistance feet & extended arms Reps/Minutes 5 Comments not much core challenge felt pnfree, more shld tiring- stable, side plank Sidelying Exercise Name feet forearm Equipment Used R 1min 22 sec Reps/Minutes L 1 min 32 sec Comments pnfree, good oblique tiring Standing Exercises SL squats Standing Exercise Name trialed STS, unable perform taps at this time- added to HEP- declined HO Resistance AROM Equipment Used 19.5 table height (approx bench) Reps/Minutes x5 each LE Comments tiring, /c good knee alignment walk lunges Standing Exercise Name /c upper body rotation- added to HEP Side bilateral Resistance AROM> 10# DB Equipment Used *Aviator Daily Dozen HO # 12 Reps/Minutes 15 ft 1 lap AROM, 2 laps /c wt Comments little balance and good core effort- pnfree SL RDL Standing Exercise Name reviewed HEP Side bilateral Resistance 10#>15# DB (1 side opposite LE ) Reps/Minutes 10 reps each x2 Comments occ cues for level pelvis and across shlds, pnfree squats Resistance Jamar 10# DB held front each shoulder height Equipment Used mirror Reps/Minutes 10x2 Comments good form knees with mid ft/ 2nd toe, symmetry Other Exercises foam rolling Other Exercise Name reviewed self flexibility: quad, ITB, HS, calf, Ts ext & rolling Resistance foarm roller legs/TS and ball rolling floor MWM calf Reps/Minutes 3 min total Comments good feedback and form PT-OP-T Assessment and Plan Start: 05/20/24 08:10 Freq: Status: Active Protocol: Document 06/03/24 08:18 SP (Rec: 06/03/24 09:03 SP [id number]) Physical Therapy Assessment Goals Four Impairment impairments in ROM and strength Short Term Goal (STG) Patient to be instrsucted in individualized progressive HEP for purposes of strengthening LE's and core, and improving flexibility 06/03/24: Planks, wt squats, SL RDLs DB, Aviation Daily Dozen static and dynamic stretching /ROM. STG Duration 06/20/24 progressing 06/03/24 Electric Pile Driver Operator Goal (LTG) Patient to be independent and compliant with HEP and demonstrate ROM WNL and strength 02/17 with good core stabilization with usual activities LTG Duration 07/20/24 Three Impairment altered patellar mechanics Detention Goal (LTG) Normalize patellar mechanics in open and closed chains for improved right knee function 05/31/24: not notice change, still stiffness even with Ktaping so going to stop using . 06/03/24: GOAL MET: doing well, no reports pain with squat, RDL, SLS squat taps to bench today. LTG Duration 07/20/24 GOAL MET 06/03/24 Two Impairment right knee and low back pain and stiffness with lifting and running Short Term Goal (STG) Patient will report at least a 50% reduction in pain and stiffness with lifting and running STG Duration 06/20/24 Electric Pile Driver Operator Goal (LTG) Patient will report at least a 75% reduction in pain and stiffness with lifting and running including the ability to lift his toddler and go for runs without pain LTG Duration 07/20/24 Assessment Summary Assessment Pt making gains in flexibility and strength, reports alot less back tightness, is engaging TA and watching body mechanics picking up his son and other activities. He continues to progress strength and tolerance during more resisted static and dynamic ther ex today with no reports of pain. Pt will continue HEP and incorporate PLOF activities while out of town for work and report back next appt with PT and discuss response trial on own or if need to continue PT. Physical Therapy Plan Frequency and Duration Frequency of Treatment 2x/Week Duration of treatment (weeks) 8 Plan of Care Start Date 05/20/24 Plan of Care End Date 07/20/24 Therapeutic Interventions Therapeutic Interventions Home Exercise Program,Manual Therapy,Neuromuscular Re- education,Patient/Caregiver Education,Self-Care/Home Management,Soft Tissue Mobilization,Taping, Therapeutic Activities, Therapeutic Exercises Modalities Cold Pack/Ice Massage,Electric Stimulation,Hot Packs, Infrared Therapy,Traction- Mechanical,Ultrasound Next Visit Focus/Plan Next Note Type Progress Note Next Visit Plan *PT Update 07/18 POC vs DC when return Oct OOT, gone work Sept. Next review/condense HEP, if returned to running and PLOF activities. Per PT POC: Continue postural correction with functional movements
--- NOTE | 2024-07-18 16:38 | PT.OTRE ---
Current Diagnoses Pain in unspecified knee (07/18/24) Dorsalgia, unspecified (07/18/24) Weakness (07/18/24) Visit Care Team Role Provider Type Lou Prajapati DO Attending Provider Non-Staff Family Provider Primary Care Provider Referring Provider Specialty: Medical Address: [address] [place] [address], [phone] Email: Physical Therapy Re-Evaluation PT-OP-A Visit Information Start: 05/20/24 08:10 Freq: Status: Active Protocol: Document 07/18/24 13:59 SAK (Rec: 07/18/24 14:43 SAK [id number]) Out-Patient Physical Therapy Visit Information Visit Information Visit Type Treatment Note Visit Start Time 13:55 Visit Stop Time 14:40 Visit Number 6 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 Knee pain/ stiffness started about the same time especially after physical activity. Running less now due to that pain/ stiffness but definitely feels it more after running. Wakes up stiff in low back. Less lifting at work but has 25 lb 1 1/2 year old who likes to be carried a lot. No numbness or tingling, no drop foot. For exrcise does rowing, weight lifting, pickle ball, tennisl. No popping, clicking, or giving way of knee. Uses foam roller, does thread the needle stretch. Does some leg stretching of legs as well. Had PT in [place] previously and found dry needling helpful about 1 year ago. Prior Treatments and Tests no recent x-ray or MRI. Treatment Goals Patient/Caregiver Goals decrease pain and patric able to resume usual activities. PT-OP-C Subjective Start: 05/20/24 08:10 Freq: Status: Active Protocol: Document 07/18/24 13:59 SAK (Rec: 07/18/24 14:43 [facility] [id number]) OP-PT Subjective Patient Comments Patient Comments No significant pain in back recently, still some pain/ tightness in right knee only with/after running; tightness and stiffness medial knee. Doing stretching. Slowly getting back into the gym, has done lifts, squat with no pain in back or knee. Able to lift son without pain about 25 lbs PT-OP-G Mobility & Gait Start: 05/20/24 08:10 Freq: Status: Active Protocol: Document 05/20/24 08:13 SAK (Rec: 05/20/24 15:32 [facility] [id number]) OP Gait Assessment Gait Gait Assistance Required: Independent Assistive Devices Assistive Device None Comments Gait Comments increased evrsion right foot, lateral patellar tilt PT-OP-H Neuro Start: 05/20/24 08:10 Freq: Status: Active Protocol: Document 05/20/24 08:13 SAK (Rec: 05/20/24 15:32 [facility] [id number]) Sensation Evaluation Gross Sensation Gross Sensation WNL PT-OP-J Posture/Palpation/Skin Start: 05/20/24 08:10 Freq: Status: Active Protocol: Document 05/20/24 08:13 SAK (Rec: 05/20/24 09:02 [facility] [id number]) Posture Evaluation Position Sitting Head/C-Spine Posture Forward Head T-Spine Posture Increased Kyphosis L-Spine Posture Shifted Right Shoulder Posture (L) Forward,(R) Forward Hip Posture (L) Abducted,(R) Abducted Patellar Posture (R) Laterally Tilted Standing Head/C-Spine Posture Forward Head T-Spine Posture Increased Kyphosis L-Spine Posture Flattened Arm Posture (L) Internally Rotated,(R) Internally Rotated Foot Arch (R) Low Arch Palpation Assessment Location lumbar spine Palpation Findings Soft Tissue Tightness Palpation Details right greater than left PT-OP-K Range of Motion Start: 05/20/24 08:10 Freq: Status: Active Protocol: Document 05/20/24 08:13 SAK (Rec: 05/20/24 09:02 [facility] [id number]) Lumbar Spine Range of Motion Lumbar Spine Active Testing Position Standing Flexion 70 Extension 20 Rotation Left 40 Rotation Right 40 Lateral Flexion Left 45 Lateral Flexion Right 45 ROM Limitations Soft Tissue Tightness Comments end range tightness Hip Goniometric Range of Motion Hip Measured in Degrees maribel Comments WFL exept right PSLR 80, left 65 Hip ROM Limitations Hip ROM Limitations Soft Tissue Tightness Knee Goniometric Range of Motion Knee Measured in Degrees maribel Knee ROM WFL Yes Ankle and Foot Goniometric Range of Motion Ankle and Foot Measured in Degrees maribel Ankle/Foot ROM WFL Yes PT-OP-L Special Tests Start: 05/20/24 08:10 Freq: Status: Active Protocol: Document 05/20/24 08:13 [facility] (Rec: 05/20/24 15:32 [facility] [id number]) Special Tests Lumbar Spine Special Tests Prone Knee Flexion Test Results - Slump Test Results - Prone Press Up Test Results - Knee Special Tests Varus- 0 Degrees Test Results - Valgus- 0 Degrees Test Results - Posterior Draw Test Results - Patellar Grind Test Test Results - Anterior Draw Test Results - Alexandro's Test Test Results - PT-OP-M Strength Start: 05/20/24 08:10 Freq: Status: Active Protocol: Document 05/20/24 08:13 [facility] (Rec: 05/20/24 15:32 [facility] [id number]) Trunk Strength Trunk Manual Muscle Testing Flexion 4 Good Extension 4 Good Hip Strength Hip Manual Muscle Testing maribel Flexion (L2) 4 Good Extension (S1) 4 Good Knee Strength Knee Manual Muscle Testing maribel Flexion (S2) 5 Normal Extension (L3) 5 Normal Ankle/Foot Strength Ankle and Foot Manual Muscle Testing Right Dorsiflexion (L4) 4+ Good+ Plantarflexion (S1) 4 Good Left Dorsiflexion (L4) 5 Normal Plantarflexion (S1) 5 Normal PT-OP-Q Treatments Start: 05/20/24 08:10 Freq: Status: Active Protocol: Document 07/18/24 13:59 [facility] (Rec: 07/18/24 14:43 [facility] [id number]) Cardio Equipment Treadmill Duration (Minutes) 6 Speed 6 Incline 0 Other warm up- painfree Gym Equipment Cable Column (Body Solid) hamstring curl Details maribel and unil Resistance 50 Reps/Time 10x2, harder on left Shuttle Recovery Unilateral Squats Details cues for LE alignment, mild inc challenge right vs left Resistance 75 Reps/Time 10x2 Bilateral Squats Details warm up for single Resistance 75 Reps/Time 10 Therapeutic Exercises Supine Exercises HS stretch Reps/Minutes 2x30 Sitting Exercises hamstring stretch Reps/Minutes 2x30 Other Exercises foam rolling Other Exercise Name calf Resistance ball on floor Reps/Minutes 2 min Self-Care/Home Management Treatment Education Patient Education Home Exercise Program,Pain Management Other Education discussion of footwear for running, wide toe box. Shoes examined; mild excess wear lateral heel maribel. Running form evaluated with Recommended unil HS curl and leg press at gym due to variances from side to side. PT-OP-T Assessment and Plan Start: 05/20/24 08:10 Freq: Status: Active Protocol: Document 07/18/24 13:59 [facility] (Rec: 07/18/24 14:43 [facility] [id number]) Physical Therapy Assessment Goals Four Impairment impairments in ROM and strength Short Term Goal (STG) Patient to be instructed in individualized progressive HEP for purposes of strengthening LE's and core, and improving flexibility 06/03/24: Planks, wt squats, SL RDLs DB, Aviation Daily Dozen static and dynamic stretching /ROM. 07/18/24: continue to advance HEP STG Duration 06/20/24 progressing 06/03/24 Mold Stacker Goal (LTG) Patient to be independent and compliant with HEP and demonstrate ROM WNL and strength 02/17 with good core stabilization with usual activities LTG Duration 08/15/24 Three Impairment altered patellar mechanics Mold Stacker Goal (LTG) Normalize patellar mechanics in open and closed chains for improved right knee function 05/31/24: not notice change, still stiffness even with Ktaping so going to stop using . 06/03/24: GOAL MET: doing well, no reports pain with squat, RDL, SLS squat taps to bench today. LTG Duration goal met Two Impairment right knee and low back pain and stiffness with lifting and running Short Term Goal (STG) Patient will report at least a 50% reduction in pain and stiffness with lifting and running 07/18/24: no back pain now with lifting and running but some right knee pain and stiffness persists with running. Goal met STG Duration goal met Mold Stacker Goal (LTG) Patient will report at least a 75% reduction in pain and stiffness with lifting and running including the ability to lift his toddler and go for runs without pain 07/18/24: can now lift his toddler without pain, but unable to run without some right knee pain and stiffness LTG Duration 08/15/24 Assessment Summary Assessment Patient has met some PT goals and is making good goal progress with remaining with improving posture, strength, decreased pain. He still has some knee pain and stiffness with running. Needs further work on flexibility, strength, and education on running form and footwear. Would benefit from 3-4 further PT visits to help him fully achieve his PT goals. Physical Therapy Plan Frequency and Duration Frequency of Treatment 2x/Week Duration of treatment (weeks) 4 Plan of Care Start Date 07/18/24 Plan of Care End Date 08/15/24 Therapeutic Interventions Therapeutic Interventions Home Exercise Program,Manual Therapy,Neuromuscular Re- education,Patient/Caregiver Education,Self-Care/Home Management,Soft Tissue Mobilization,Taping, Therapeutic Activities, Therapeutic Exercises Modalities Cold Pack/Ice Massage,Electric Stimulation,Hot Packs, Infrared Therapy,Traction- Mechanical,Ultrasound Next Visit Focus/Plan Next Note Type Treatment Note Next Visit Plan Per PT POC: Continue postural correction with functional movements. Trial side plank with leg lift, shuttle leg press on wobble board. Consider further KT tape if knee pain/stiffness persists with running.
--- NOTE | 2024-10-29 08:59 | PT.OPDS ---
Current Diagnoses Pain in unspecified knee (07/18/24) Dorsalgia, unspecified (07/18/24) Weakness (07/18/24) Visit Care Team Role Provider Type Lou Prajapati DO Attending Provider Non-Staff Family Provider Primary Care Provider Referring Provider Specialty: Medical Address: [address] [place] [address], [id number] Email: Visit Number Visit Number 6 Discharge Summary PT-OP-B Current Condition Start: 05/20/24 08:10 Freq: Status: Active Protocol: Document 05/23/24 15:50 SAK (Rec: 05/23/24 16:07 SAK [id number]) Current Condition History of Current Condition Onset Date 2 years Current Complaints bilateral LBP right greater than left, right knee pain History of Current Condition 2 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 Knee pain/ stiffness started about the same time especially after physical activity. Running less now due to that pain/ stiffness but definitely feels it more after running. Wakes up stiff in low back. Less lifting at work but has 25 lb 1 1/2 year old who likes to be carried a lot. No numbness or tingling, no drop foot. For exrcise does rowing, weight lifting, pickle ball, tennisl. No popping, clicking, or giving way of knee. Uses foam roller, does thread the needle stretch. Does some leg stretching of legs as well. Had PT in [place] previously and found dry needling helpful about 1 year ago. Prior Treatments and Tests no recent x-ray or MRI. Treatment Goals Patient/Caregiver Goals decrease pain and patric able to resume usual activities. PT-OP-C Subjective Start: 05/20/24 08:10 Freq: Status: Active Protocol: Document 07/18/24 13:59 SAK (Rec: 07/18/24 14:43 SAK [id number]) OP-PT Subjective Patient Comments Patient Comments No significant pain in back recently, still some pain/ tightness in right knee only with/after running; tightness and stiffness medial knee. Doing stretching. Slowly getting back into the gym, has done lifts, squat with no pain in back or knee. Able to lift son without pain about 25 lbs PT-OP-G Mobility & Gait Start: 05/20/24 08:10 Freq: Status: Active Protocol: Document 05/20/24 08:13 SAK (Rec: 05/20/24 15:32 [facility] [id number]) OP Gait Assessment Gait Gait Assistance Required: Independent Assistive Devices Assistive Device None Comments Gait Comments increased evrsion right foot, lateral patellar tilt PT-OP-H Neuro Start: 05/20/24 08:10 Freq: Status: Active Protocol: Document 05/20/24 08:13 SAK (Rec: 05/20/24 15:32 [facility] [id number]) Sensation Evaluation Gross Sensation Gross Sensation WNL PT-OP-J Posture/Palpation/Skin Start: 05/20/24 08:10 Freq: Status: Active Protocol: Document 05/20/24 08:13 SAK (Rec: 05/20/24 09:02 [facility] [id number]) Posture Evaluation Position Sitting Head/C-Spine Posture Forward Head T-Spine Posture Increased Kyphosis L-Spine Posture Shifted Right Shoulder Posture (L) Forward,(R) Forward Hip Posture (L) Abducted,(R) Abducted Patellar Posture (R) Laterally Tilted Standing Head/C-Spine Posture Forward Head T-Spine Posture Increased Kyphosis L-Spine Posture Flattened Arm Posture (L) Internally Rotated,(R) Internally Rotated Foot Arch (R) Low Arch Palpation Assessment Location lumbar spine Palpation Findings Soft Tissue Tightness Palpation Details right greater than left PT-OP-K Range of Motion Start: 05/20/24 08:10 Freq: Status: Active Protocol: Document 05/20/24 08:13 SAK (Rec: 05/20/24 09:02 [facility] [id number]) Lumbar Spine Range of Motion Lumbar Spine Active Testing Position Standing Flexion 70 Extension 20 Rotation Left 40 Rotation Right 40 Lateral Flexion Left 45 Lateral Flexion Right 45 ROM Limitations Soft Tissue Tightness Comments end range tightness Hip Goniometric Range of Motion Hip maribel Comments WFL exept right PSLR 80, left 65 Hip ROM Limitations Hip ROM Limitations Soft Tissue Tightness Knee Goniometric Range of Motion Knee maribel Knee ROM WFL Yes Ankle and Foot Goniometric Range of Motion Ankle and Foot maribel Ankle/Foot ROM WFL Yes PT-OP-L Special Tests Start: 05/20/24 08:10 Freq: Status: Active Protocol: Document 05/20/24 08:13 SAK (Rec: 05/20/24 15:32 [facility] [id number]) Special Tests Lumbar Spine Special Tests Prone Knee Flexion Test Results - Slump Test Results - Prone Press Up Test Results - Knee Special Tests Varus- 0 Degrees Test Results - Valgus- 0 Degrees Test Results - Posterior Draw Test Results - Patellar Grind Test Test Results - Anterior Draw Test Results - Alexandro's Test Test Results - PT-OP-M Strength Start: 05/20/24 08:10 Freq: Status: Active Protocol: Document 05/20/24 08:13 [facility] (Rec: 05/20/24 15:32 [facility] [id number]) Trunk Strength Trunk Manual Muscle Testing Flexion 4 Good Extension 4 Good Hip Strength Hip Manual Muscle Testing maribel Flexion (L2) 4 Good Extension (S1) 4 Good Knee Strength Knee Manual Muscle Testing maribel Flexion (S2) 5 Normal Extension (L3) 5 Normal Ankle/Foot Strength Ankle and Foot Manual Muscle Testing Right Dorsiflexion (L4) 4+ Good+ Plantarflexion (S1) 4 Good Left Dorsiflexion (L4) 5 Normal Plantarflexion (S1) 5 Normal PT-OP-T Assessment and Plan Start: 05/20/24 08:10 Freq: Status: Active Protocol: Document 10/29/24 08:58 [facility] (Rec: 10/29/24 08:59 [facility] [id number]) Physical Therapy Plan Discharge Physical Therapy Discharge Reasons No Longer Attending PT
== END 2024-11-01 10:21 | disposition home or self-care (01) ==
LOC: PHYS 13:45
PROVIDERS: Family Provider Preventive Medicine Aerospace Medicine; PCP Preventive Medicine Aerospace Medicine; Referring Provider Preventive Medicine Aerospace Medicine; Visit Provider Preventive Medicine Aerospace Medicine
DX: M54.9 Dorsalgia, unspecified (principal); M25.569 Pain in unspecified knee; R53.1 Weakness
CPT/HCPCS: 97110; 97140; 97161; 97535